=== PATIENT | male | born 1995 | race Caucasian/White ===

== ENCOUNTER 2023-02-20 22:25 | Emergency (ER) | payer MEDICARE, MEDICAID, SELFPAY ==
[2023-02-20 22:26] VITALS: BP 136/83; PULSE 92; RESP 20; TEMP 36.5; O2SAT 98; BMI 19.5
--- NOTE | 2023-02-20 22:44 | HMH.EDGENADL ---
Discharge Plan Disposition Patient Disposition: Home, Self-Care Prescriptions Prescriptions: New prednisone 50 mg tablet 50 mg PO DAILY 3 Days Qty: 3 0RF epinephrine 0.3 mg/0.3 mL auto-injector 0.3 mg IM Q10M PRN (Reason: anaphylaxis) Qty: 2 0RF Rx Instructions: for 2 doses Referrals Follow up/Referrals: Tomasz Paez [Primary Care Provider] - See instructions Activity Restrictions/Add. Instructions Additional Instructions/Restrictions: At this time it was felt you are safe to be discharged home. If new or worsening symptoms please do not hesitate to return the emergency department. Please take your medications as prescribed. Please pay attention to if your symptoms happen after ingestion of red meat. Clinical Impressions Clinical Impression: Allergic reaction Discharge ED Provider: Edi Vazquez General Adult HPI General Chief complaint: Allergic Reaction Stated complaint: trouble breathing, hives Time Seen by Provider: 02/20/23 22:35 Mode of Arrival: Ambulatory Source of Information: Patient Limitations: No Limitations Description of Symptoms (Recalled from ER Triage Doc. by RN): Patient having an allergic rx to unknown substance, having hives and facial swelling. History of Present Illness HPI narrative: Patient is a 28-year-old male who has past medical history of recurrent allergic reactions of unknown etiology presents emergency department for evaluation for concern for an allergic reaction. Onset was acute, just prior to arrival, patient had red blotchy patches over his back and swelling of his face and periorbital areas, no significant difficulty breathing. No other acute complaints at this time. Patient denies new close, new detergents, new occupational exposures, no other acute complaints at this time. Related Data Previous Rx's Medication Instructions Recorded epinephrine 0.3 mg/0.3 mL 0.3 mg (0.3 mL) IM Q10M PRN 02/20/23 injection, auto-injector anaphylaxis #2 ea prednisone 50 mg tablet 50 mg PO DAILY 3 days #3 tabs 02/20/23 Allergies Allergy/AdvReac Type Severity Reaction Status Date / Time Penicillins Allergy Intermediate Verified 02/20/23 22:40 morphine AdvReac Mild Verified 02/20/23 22:41 [facility] Disclaimer: The information contained in this section may have been updated after the patient was seen, as this information can be updated by other users. Social History Smoking Status: Current every day smoker alcohol intake: never current occupational status: other Travel in the last 8 weeks: None ROS Obtained: Yes Systems reviewed as appropriate & no additional complaints except as documented Physical Exam General General appearance: alert and in no apparent distress Head Head exam: atraumatic, normocephalic and other (Periorbital and cheek erythema and mild edema.) Eye Eye exam: Present PERRL and EOMI ENT ENT exam: Present mucous membranes moist Neck Neck exam: Present normal inspection Chest Chest inspection: Present normal inspection and symmetric chest wall rise Respiratory Respiratory exam: Present normal lung sounds bilaterally; Absent respiratory distress or wheezes Cardiovascular Cardiovascular exam: Present regular rate and normal rhythm Abdominal Exam Abdominal exam: Present soft; Absent tenderness Extremities Exam Extremities exam: Present normal inspection Neurological Exam Neurological exam: Present alert Psychiatric Psychiatric exam: Present normal affect Skin Skin exam: Present warm, dry and other (Scattered acne over patient's posterior back, no hives) Medical Decision Making Tristin Inquiry Pt receiving controlled substance: No Vital Signs: 02/20/23 22:26 02/20/23 22:45 Temperature 97.7 F Temperature Source Oral Pulse Rate 92 H Pulse Rate [Brachial] 92 H Respiratory Rate 20 22 Blood Pressure 136/83 Blood Pressure [Left Arm] 136/83 Blood Pressure Mean [Left Arm] 100 Blood Pressure Source [Left Arm] Automatic Cuff Blood Pressure Position [Left Arm] Sitting 02 Sat by Pulse Oximetry 98 97 Oxygen Delivery Method Room Air Room Air Orders (Tests/Meds): ED MEDICATIONS Discontinued Medications Generic Name Dose Route Start Last Admin Trade Name Freq PRN Reason Stop Dose Admin Diphenhydramine HCl 50 mg 02/20/23 22:46 02/20/23 23:02 Diphenhydramine 50mg Capsule PO 02/20/23 22:47 50 mg ONCE ONE Administration Prednisone 40 mg 02/20/23 22:46 02/20/23 23:02 Prednisone 20mg Tab PO 02/20/23 22:47 40 mg ONCE ONE Administration Medical Decision Narrative: In summary patient is a 28-year-old male with past medical history described above who presents emergency department for evaluation of facial swelling in the setting of previous recurrent allergic reactions. Patient is hemodynamically stable nontoxic-appearing upon arrival, afebrile. Patient has mild periorbital and bilateral cheek swelling, no airway involvement, no overt hives on skin exam, no gastrointestinal involvement. Given this history and symptoms are consistent with allergic reaction. Patient does not meet criteria for anaphylaxis. Patient will be given Benadryl and prednisone and will undergo period of observation. Upon repeat evaluation patient had resolving facial swelling, no airway symptoms. Given this patient is appropriate for discharge at this time will be discharged with a course of prednisone and EpiPen and was given return precautions. Critical Care Critical Care Time Critical Care Time: No
[2023-02-20 22:45] VITALS: BP 136/83; PULSE 92; RESP 22; O2SAT 97
[2023-02-20] MEDS: predniSONE 20MG TAB 40 MG PO (23:02)
[2023-02-20] MEDS: diphenhydrAMINE 50MG CAPSULE 50 MG PO (23:02)
[2023-02-20 23:41] VITALS: BP 114/68; PULSE 87; RESP 19; TEMP 36.7
== END 2023-02-21 00:09 | disposition home or self-care (01) ==
PROVIDERS: Emergency Provider Emergency Medicine; PCP Pediatrics
DX: T78.40XA Allergy, unspecified, initial encounter (principal); R22.0 Localized swelling, mass and lump, head; L50.9 Urticaria, unspecified; F17.200 Nicotine dependence, unspecified, uncomplicated
CPT/HCPCS: 99283

== ENCOUNTER 2023-05-07 23:13 | Emergency (ER) | payer MEDICARE, MEDICAID, SELFPAY ==
[2023-05-07 23:18] VITALS: BP 132/94; PULSE 110; RESP 20; TEMP 36.8; O2SAT 98; BMI 19.5
[2023-05-07] MEDS: diphenhydrAMINE 25MG CAPSULE 25 MG PO (23:48)
[2023-05-07 23:49] VITALS: PULSE 90; RESP 18; O2SAT 97
--- NOTE | 2023-05-07 23:52 | ED_ITS ---
Discharge Plan Disposition Patient Disposition: Home, Self-Care Condition: Good Prescriptions Prescriptions: New epinephrine 0.3 mg/0.3 mL auto-injector 0.3 mg IM Q15M PRN (Reason: anaphylaxis) Qty: 2 0RF Rx Instructions: for 2 doses All Day Allergy (cetirizine) 10 mg capsule 10 mg PO DAILY Qty: 30 0RF No Action prednisone 50 mg tablet 50 mg PO DAILY 3 Days Qty: 3 0RF epinephrine 0.3 mg/0.3 mL auto-injector 0.3 mg IM Q10M PRN (Reason: anaphylaxis) Qty: 2 0RF Rx Instructions: for 2 doses Referrals Follow up/Referrals: Tomasz Paez [Primary Care Provider] - See instructions Activity Restrictions/Add. Instructions Additional Instructions/Restrictions: You were evaluated in the ER. You are appropriate for discharge at this time. I have prescribed a daily antihistamine for you to take. This is cetirizine, take this as directed to suppress any potential allergic reaction. I have also prescribed EpiPen for you again, as discussed do not take this unless you are having signs and symptoms of a life-threatening allergic reaction. If you use the EpiPen, you must immediately go to an ER. Make a new appointment with an instrumentation and control technician (Dr. Paez) for reevaluation. Monitor your diet, soaps, detergents, lotions, etc. to see if any of these seem to cause you to have reaction. Make an appointment with your primary care physician for reevaluation in 2 to 3 days, return to the ER with any new, worsening, or otherwise concerning symptoms Clinical Impressions Clinical Impression: Rash, Allergic reaction Instructions Patient Instructions: DI for Skin Abscess Discharge ED Provider: Chiqui Figueroa Adult HPI General Chief complaint: Skin/Abscess/Foreign Body Stated complaint: allergic reaction with rash/bumps on skin Time Seen by Provider: 05/07/23 23:23 Mode of Arrival: Ambulatory Source of Information: Patient Limitations: No Limitations Description of Symptoms (Recalled from ER Triage Doc. by RN): Patient reports to ED with c/o of his face burning, and rash on his back, neck and face. History of Present Illness HPI narrative: 28-year-old male with a reported history of allergic reactions going on for the last 3 years presents to the ER with concerns of the right side of his face burning, rash on his neck, back. Patient reports the last time he presented with symptoms like this he was prescribed an EpiPen because he had trouble breathing. He states his symptoms are actually getting better despite him not having taken anything. He does not know what caused this reaction. He reports he went to an instrumentation and control technician and they could not find out what was causing his reactions. He denies any recent changes in soaps, detergents, foods, or other n ew exposures. He denies taking any medications for his symptoms but states they have improved since leaving the house. He denies any lip swelling, throat swelling, difficulty swallowing, vomiting, or trouble breathing at this time. He does admit to drinking alcohol tonight. He also reports smoking and chewing tobacco, no other illicit substances. Related Data Previous Rx's Medication Instructions Recorded epinephrine 0.3 mg/0.3 mL 0.3 mg (0.3 mL) IM Q10M PRN 02/20/23 injection, auto-injector anaphylaxis #2 ea prednisone 50 mg tablet 50 mg PO DAILY 3 days #3 tabs 02/20/23 cetirizine 10 mg capsule (All Day 10 mg PO DAILY #30 caps 05/07/23 Allergy (cetirizine)) epinephrine 0.3 mg/0.3 mL 0.3 mg (0.3 mL) IM Q15M PRN 05/07/23 injection, auto-injector anaphylaxis #2 ea Allergies Allergy/AdvReac Type Severity Reaction Status Date / Time Penicillins Allergy Intermediate Verified 02/20/23 22:40 morphine AdvReac Mild Verified 02/20/23 22:41 [facility] Disclaimer: The information contained in this section may have been updated after the patient was seen, as this information can be updated by other users. Social History (Updated 02/20/23 @ 23:39 by Edi Vazquez MD) Smoking Status: Current every day smoker alcohol intake: never current occupational status: other Travel in the last 8 weeks: None ROS Obtained: Yes All systems reviewed & no additional complaints except as documented Constitutional Constitutional: Denies chills, Denies fever(s), Denies headache(s) and Denies weakness Eyes Eyes: Denies change in vision ENT Ears, Nose, Mouth, and Throat: Denies dizziness, Denies headache(s), Denies nasal congestion and Denies sore throat Cardiovascular Cardiovascular: Denies chest pain, Denies dyspnea and Denies leg edema Respiratory Respiratory: Denies cough and Denies dyspnea Gastrointestinal Gastrointestingal: Denies constipation, diarrhea, nausea or vomiting Genitourinary Male Genitourinary: Denies difficulty urinating Musculoskeletal Musculoskeletal: Denies arthralgias, Denies myalgias, Denies numbness and Denies tingling Integumentary/Breasts Skin/Breast: Denies change in pigmentation and Reports rash (Neck, right face, back, but patient states it is significantly improved) Neurologic Neurologic: Denies dizziness, Denies headache(s), Denies numbness, Denies tingling and Denies weakness Physical Exam General General appearance: alert and in no apparent distress Head Head exam: atraumatic and normocephalic Eye Eye exam: Present PERRL and EOMI ENT ENT exam: Present mucous membranes moist and other (Trace redness over the right cheek without urticaria, swelling, or other lesions appreciated. No mucosal swelling, no angioedema) Neck Neck exam: Present normal inspection, full ROM and other (No rash, swelling, or adenopathy present, no urticaria); Absent lymphadenopathy or thyromegaly Chest Chest inspection: Present symmetric chest wall rise Respiratory Respiratory exam: Present normal lung sounds bilaterally; Absent respiratory distress, wheezes or stridor Cardiovascular Cardiovascular exam: Present regular rate and normal rhythm Abdominal Exam Abdominal exam: Present soft; Absent distention or tenderness Extremities Exam Extremities exam: Present full ROM Back Exam Back exam: Present other (Acne lesions present diffusely over the back, no urticaria, redness, excoriations, or other lesions) Neurological Exam Neurological exam: Present alert, oriented X3, CN II-XII intact and normal gait; Absent motor sensory deficit Psychiatric Psychiatric exam: Present normal affect and normal mood Skin Skin exam: Present warm, dry and rash (See documentation on neck, face, and back) Medical Decision Making Tristin Inquiry Pt receiving controlled substance: No Vital Signs: 05/07/23 23:18 05/07/23 23:49 Temperature 98.2 F Temperature Source Oral Pulse Rate 90 Pulse Rate [Right Radial] 110 H Respiratory Rate 20 18 Blood Pressure [Right Arm] 132/94 H Blood Pressure Mean [Right Arm] 106 Blood Pressure Source [Right Arm] Automatic Cuff Blood Pressure Position [Right Arm] Sitting 02 Sat by Pulse Oximetry 98 97 Oxygen Delivery Method Room Air Room Air Orders (Tests/Meds): ED MEDICATIONS Discontinued Medications Generic Name Dose Route Start Last Admin Trade Name Ya PRN Reason Stop Dose Admin Diphenhydramine HCl 25 mg 05/07/23 23:46 05/07/23 23:48 Diphenhydramine 25mg Capsule PO 05/07/23 23:47 25 mg ONCE ONE Administration Medical Decision Narrative: In summary, this 28year old male presents to the emergency department today with concerns of rash. On initial evaluation patient is hemodynamically stable, afebrile, no mucosal swelling, no stridor, no wheezes, no vomiting, very mild rash over the right cheek without any urticaria or other lesions appreciated. No rash present on the neck at this time though it was described at home. Acne present on the back, no rash present at this time. GCS 15, no focal neurologic deficits, no other abnormalities on exam. Differential diagnosis includes but is not limited to contact dermatitis, allergic dermatitis, considered systemic allergic reaction however patient has no findings of anaphylaxis or angioedema. I did review prior ED records which demonstrate patient had received EpiPen due to concerns of facial swelling when he most recently presented for similar complaints. He states he was unable to picker machine operator the EpiPen at that time and is asking for it to be prescribed again. Based on these concerns, I ordered Benadryl administration, no labs or imaging are necessary at this time. After Benadryl administration patient remained stable. His rash continues to improve, he has not developed any other symptoms, he is appropriate for discharge at this time. I prescribed Zyrtec for daily histamine management given he does not know the stimulant for his allergy, I recommended that he go back to his instrumentation and control technician for reevaluation, and I represcribed an EpiPen in case he were to develop a life-threatening reaction. Patient was given instructions on symptomatic management, follow up instructions, and return precautions for the emergency department. Patient indicated understanding and was discharged in stable condition. Critical Care Critical Care Time Critical Care Time: No
[2023-05-08 00:08] VITALS: BP 142/83; PULSE 90; RESP 18; TEMP 36.8; O2SAT 99
== END 2023-05-08 00:12 | disposition home or self-care (01) ==
LOC: ER 23:50
PROVIDERS: Emergency Provider Emergency Medicine; PCP Pediatrics
DX: R21 Rash and other nonspecific skin eruption (principal); T78.40XA Allergy, unspecified, initial encounter; F17.200 Nicotine dependence, unspecified, uncomplicated
CPT/HCPCS: 99283

== ENCOUNTER 2023-12-07 11:52 | Emergency (ER) | payer MEDICARE, MEDICAID, SELFPAY ==
[2023-12-07 11:53] VITALS: BP 135/87; PULSE 81; RESP 20; TEMP 36.9; O2SAT 100; BMI 28.7
[2023-12-07 12:24] LABS: Basophils # 0.1 K/mm3 (0-0.2); Basophils % 1.3 % (0.1-2.0); Eosinophils # 0.2 K/mm3 (0.0-0.4); Eosinophils % 2.3 % (0.1-12.0); Hematocrit 46.5 % (42.0-52.0); Hemoglobin 15.6 g/dL (14.1-18.0); Lymphocytes # 2.2 K/mm3 (0.7-4.5); Lymphocytes % 34.4 % (10-50); Mean Corpuscular HGB Conc 33.5 g/dL (31.8-35.4); Mean Corpuscular Hemoglobin 33.6 pg (27.0-31.2); Mean Corpuscular Volume 100.4 fl (80-94); Mean Platelet Volume 9.5 fl (7.4-10.4); Monocytes # 0.5 K/mm3 (0.1-1.0); Monocytes % 7.9 % (1.7-9.3); Neutrophils # 3.5 K/mm3 (1.8-7.8); Neutrophils % 54.1 % (37.0-80.0); Platelet Count 218 K/mm3 (142-424); Red Blood Count 4.63 M/mm3 (4.60-6.20); Red Cell Distribution Width 12.9 % (11.5-17.5); White Blood Count 6.4 K/mm3 (4.8-10.8)
[2023-12-07 12:25] LABS: Microscopic, Urine URINE MICROSCOPIC (MICROSCOPIC)
[2023-12-07 12:29] LABS: Appearance,Urine CLEAR (Clear); Bilirubin,Urine Negative (Negative); Blood, Urine Negative (Negative); Color,Urine YELLOW (Yellow); Glucose,Urine (UA) Negative (Negative); Ketones,Urine Negative (Negative); Leukocyte Esterase,Urine Negative (Negative); Nitrate,Urine Negative (Negative); Protein,Urine TRACE (Negative); Specific Gravity, Urine 1.025 (1.005-1.030); Urobilinogen,Urine 0.2 EU/dl (0.2)
[2023-12-07 12:33] LABS: Albumin Level 4.9 g/dl (3.5-5.0); Chloride 104 mmol/L (98-107); Potassium 4.1 mmoL/L (3.5-5.1); Sodium 137 mmol/L (136-145)
[2023-12-07 12:35] LABS: Lactic Acid 1.2 mmol/L (0.7-2.1)
[2023-12-07 12:36] LABS: Alanine Aminotransferase 21 U/L (12-78); Albumin/Globulin Ratio 1.6 (1.1-1.8); Alkaline Phosphatase 59 U/L (38-126); Anion Gap 12.1 mEq/L (5-15); Aspartate Amino Transferase 30 U/L (17-59); Bilirubin,Total 2.2 mg/dl (0.2-1.3); Blood Urea Nitrogen 7 mg/dl (9-20); Calcium 9.6 mg/dl (8.4-10.2); Carbon Dioxide 25 mmol/L (22.0-30.0); Creatinine Clearance Estimated 180 mL/min (50-200); Estimated Glomerular Filt Rate 117 ml/min (>60); GFR (African American) 141 ML/MIN (>60); Glucose 99 mg/dl (74-100); Lipase 86 U/L (23-300); Total Protein,Serum 7.9 g/dl (6.3-8.2)
--- NOTE | 2023-12-07 12:37 | CT_ITS ---
FINAL REPORT TECHNIQUE: Oral and IV contrast enhanced exam This study was performed with techniques to keep radiation doses as low as reasonably achievable, (ALARA). Individualized dose reduction techniques using automated exposure control or adjustment of mA and/or kV according to the patient''s size were employed. CLINICAL HISTORY: lower abd pain FINDINGS: Abdomen: No acute density is seen within the lung bases. The gallbladder is unremarkable. Solid abdominal organs are unremarkable. No bowel obstruction is present. There is no free air. No fluid collection is seen. There is no adenopathy. Pelvis: The appendix is normal. The bladder wall is thickened raising question of cystitis. No bowel wall thickening is present. There is no free fluid. No pelvic mass is seen. IMPRESSION: Bladder wall thickening raising question of cystitis. Reviewed, Interpreted and Dictated by Zeeshan Harris MD Transcribed by Richa Mckenzie Authenticated and [facility]
[2023-12-07 12:50] LABS: Sperm,Urine OCC /lpf
[2023-12-07] MEDS: ACETAMINOPHEN 500MG TAB 1000 MG PO (12:53)
[2023-12-07] MEDS: SODIUM CHLORIDE 0.9% 10ML SYR (RAD ONLY) 10 ML IV (12:53)
[2023-12-07] MEDS: KETOROLAC 30MG/ML VIAL 15 MG IV (12:53)
[2023-12-07] MEDS: IOPAMIDOL-370 (76%);100ML BOTTLE 75 ML IV (12:53)
[2023-12-07] MEDS: LACTATED RINGERS 1000ML 1,000 ML 999 ML IV (12:53)
[2023-12-07 13:00] VITALS: BP 115/81; PULSE 77; O2SAT 99
[2023-12-07 13:30] VITALS: BP 95/54; PULSE 67; O2SAT 100
[2023-12-07 13:32] LABS: HIV (1&2) Antibody Rapid NONREACTIVE (NONREACTIVE)
[2023-12-07 14:00] VITALS: BP 125/85; PULSE 78; O2SAT 99
[2023-12-07] MEDS: DOXYCYCLINE HYCL 100 MG TABLET PO (14:28)
[2023-12-07] MEDS: CEFTRIAXONE SODIUM 2 GM in 0.9 % SODIUM CHLORIDE 100 ML IV (14:28)
[2023-12-07 14:43] VITALS: BP 125/85; PULSE 78; RESP 16; TEMP 36.7; O2SAT 98
--- NOTE | 2023-12-07 15:07 | HMH.EDGENADL ---
Discharge Plan Disposition Patient Disposition: Home, Self-Care Condition: Good Prescriptions Prescriptions: New naproxen 500 mg tablet 500 mg PO BID Qty: 20 0RF doxycycline hyclate 100 mg tablet 100 mg PO BID 10 Days Qty: 20 0RF No Action epinephrine 0.3 mg/0.3 mL auto-injector 0.3 mg IM Q15M PRN (Reason: anaphylaxis) Qty: 2 0RF Rx Instructions: for 2 doses All Day Allergy (cetirizine) 10 mg capsule 10 mg PO DAILY Qty: 30 0RF prednisone 50 mg tablet 50 mg PO DAILY 3 Days Qty: 3 0RF epinephrine 0.3 mg/0.3 mL auto-injector 0.3 mg IM Q10M PRN (Reason: anaphylaxis) Qty: 2 0RF Rx Instructions: for 2 doses Referrals Follow up/Referrals: Tomasz Paez [Primary Care Provider] - See instructions Audi Jiménez MD [Staff Physician] - See instructions Activity Restrictions/Add. Instructions Additional Instructions/Restrictions: You were evaluated in the emergency department today. Your urine is clear, however your bladder is extremely inflamed on CT scan which is concerning for infection. Please peanut picker your prescriptions at the pharmacy and take the full course as prescribed. Follow-up closely with urology as well as with your primary care provider. We have provided you with information for Dr. Jiménez. Return to the emergency department for new or worsening symptoms. you may also take Tylenol every 4-6 hours at home as needed for pain Clinical Impressions Clinical Impression: Acute pelvic pain, Bladder wall thickening Stand Alone Forms Stand Alone Forms: Work/School Release Instructions Patient Instructions: DI for Urinary Tract Infection (UTI), DI for Acute Abdominal Pain Print Language Print Language: Bahraini Discharge ED Provider: Karina Ruiz General Adult HPI General Chief complaint: Abdominal Pain Stated complaint: pain in abd Time Seen by Provider: 12/07/23 12:30 Mode of Arrival: Family Vehicle Source of Information: Patient Limitations: No Limitations Description of Symptoms (Recalled from ER Triage Doc. by RN): Pt c/o lower ABD pain for 4 days. ABD is tender but soft. He also reports a cough when laying down. History of Present Illness HPI narrative: This patient is a 28-year-old male who denies significant past medical history presenting to the emergency department for evaluation with concern for pelvic pain. He reports it has been going on for about 4 days now. No fevers, chills, nausea, vomiting, changes bowel movements, changes in urination, or other concerns. No testicular or penile issues Related Data Previous Rx's ?Medication ?Instructions ?Recorded epinephrine 0.3 mg/0.3 mL 0.3 mg (0.3 mL) IM Q10M PRN 02/20/23 injection, auto-injector anaphylaxis #2 ea prednisone 50 mg tablet 50 mg PO DAILY 3 days #3 tabs 02/20/23 cetirizine 10 mg capsule (All Day 10 mg PO DAILY #30 caps 05/07/23 Allergy (cetirizine)) epinephrine 0.3 mg/0.3 mL 0.3 mg (0.3 mL) IM Q15M PRN 05/07/23 injection, auto-injector anaphylaxis #2 ea doxycycline hyclate 100 mg tablet 100 mg PO BID 10 days #20 tabs 12/07/23 naproxen 500 mg tablet 500 mg PO BID #20 tabs 12/07/23 Allergies Allergy/AdvReac Type Severity Reaction Status Date / Time Penicillins Allergy Intermediate Verified 02/20/23 22:40 morphine AdvReac Mild Verified 02/20/23 22:41 PFSH [facility] Disclaimer: The information contained in this section may have been updated after the patient was seen, as this information can be updated by other users. Social History Smoking Status: Current every day smoker alcohol intake: never current occupational status: other Travel in the last 8 weeks: None ROS Obtained: Yes All systems reviewed & no additional complaints except as documented Physical Exam General General appearance: alert and in no apparent distress Head Head exam: atraumatic and normocephalic Eye Eye exam: Present normal appearance, PERRL and EOMI ENT ENT exam: Present normal exam, normal oropharynx, mucous membranes moist and normal external ear exam Neck Neck exam: Present normal inspection, full ROM and trachea midline; Absent tenderness Chest Chest inspection: Present normal inspection and symmetric chest wall rise; Absent tenderness Respiratory Respiratory exam: Present normal lung sounds bilaterally; Absent respiratory distress, wheezes, stridor or accessory muscle use Cardiovascular Cardiovascular exam: Present regular rate and normal rhythm Abdominal Exam Abdominal exam: Present soft and tenderness (Suprapubic); Absent distention, guarding, rebound or rigidity Extremities Exam Extremities exam: Present normal inspection, full ROM and normal capillary refill; Absent tenderness or edema Back Exam Back exam: Present normal inspection and full ROM; Absent tenderness Neurological Exam Neurological exam: Present alert, oriented X3, CN II-XII intact and normal gait; Absent motor sensory deficit Psychiatric Psychiatric exam: Present normal affect and normal mood Skin Skin exam: Present warm and dry Medical Decision Making Medical Records Medical records reviewed: Yes I reviewed the patient's medical records. Screening: Per USPSTF and CDC recommendations, given the prevalence of disease in our region, it is our hospital?s policy to screen for HIV and viral Hepatitis for all patients aged 18 and over and those with ongoing risk factors. [place] Inquiry Pt receiving controlled substance: No Vital Signs: 12/07/23 11:53 12/07/23 13:00 12/07/23 13:30 Temperature 98.5 F Temperature Source Oral Pulse Rate 77 67 Pulse Rate [Right] 81 Respiratory Rate 20 Blood Pressure 115/81 95/54 L Blood Pressure [Right Arm] 135/87 Blood Pressure Mean 90 67 Blood Pressure Mean [Right Arm] 103 Blood Pressure Source [Right Arm] Automatic Cuff 02 Sat by Pulse Oximetry 100 99 100 Oxygen Delivery Method Room Air Room Air Room Air 12/07/23 14:00 12/07/23 14:43 Temperature 98.0 F Temperature Source Pulse Rate 78 78 Pulse Rate [Right] Respiratory Rate 16 Blood Pressure 125/85 125/85 Blood Pressure [Right Arm] Blood Pressure Mean 98 Blood Pressure Mean [Right Arm] Blood Pressure Source [Right Arm] 02 Sat by Pulse Oximetry 99 Oxygen Delivery Method Room Air Room Air Lab Data Lab results reviewed: Yes I reviewed the patient's lab results. Lab Results 12/07/23 12:09: WBC 6.4, RBC 4.63, Hgb 15.6, Hct 46.5, MCV 100.4 H, MCH 33.6 H, MCHC 33.5, RDW 12.9, Plt Count 218, MPV 9.5, Neut % (Auto) 54.1, Lymph % (Auto) 34.4, [place] % (Auto) 7.9, Eos % (Auto) 2.3, Baso % (Auto) 1.3, Neut # (Auto) 3.5, Lymph # (Auto) 2.2, [place] # (Auto) 0.5, Eos # (Auto) 0.2, Baso # (Auto) 0.1, Sodium 137, Potassium 4.1, Chloride 104, Carbon Dioxide 25, Anion Gap 12.1, BUN 7 L, Creatinine 0.80, Estimated Creat Clear 180, Estimated GFR 117, Est GFR ( Amer) 141, Glucose 99, Lactate 1.2, Calcium 9.6, Total Bilirubin 2.2 H, AST 30, ALT 21, Alkaline Phosphatase 59, Total Protein 7.9, Albumin 4.9, Globulin 3.0, Albumin/Globulin Ratio 1.6, Lipase 86, Urine Color Yellow, Urine Appearance Clear, Urine pH 6.0, Ur Specific [place] 1.025, Urine Protein Trace, Urine Glucose (UA) Negative, Urine Ketones Negative, Urine Blood Negative, Urine Nitrate Negative, Urine Bilirubin Negative, Urine Urobilinogen 0.2, Ur Leukocyte Esterase Negative, Urine RBC None, Urine WBC None, Ur Squamous Epith Cells None, Urine Bacteria None, Urine Sperm Occ, HIV 1&2 Antibody Rapid Nonreactive 12/07/23 12:09 12/07/23 12:09 Orders (Tests/Meds): ED MEDICATIONS Discontinued Medications Generic Name Dose Route Start Last Admin Trade Name Mikaelq PRN Reason Stop Dose Admin Acetaminophen 1,000 mg 12/07/23 12:39 12/07/23 12:53 Acetaminophen 500mg Tab PO 12/07/23 12:40 1,000 mg ONCE ONE Administration Doxycycline Hyclate 100 mg 12/07/23 14:14 12/07/23 14:28 Doxycycline Hycl 100 Mg Tablet PO 12/07/23 14:15 100 mg ONCE ONE Administration Lactated Ringer's 1,000 mls @ 999 mls/hr 12/07/23 12:39 12/07/23 12:53 Lactated Ringer's 1000 Ml Bag IV 12/07/23 13:39 999 mls/hr .Q1H1M ONE Administration Ceftriaxone Sodium 2 gm/ 100 mls @ 200 mls/hr 12/07/23 14:14 12/07/23 14:28 Sodium Chloride IV 12/07/23 14:43 200 mls/hr ONCE ONE Administration Iopamidol 75 ml 12/07/23 12:52 12/07/23 12:53 Iopamidol-370 (76%);100ml Bottle IV 12/07/23 12:53 75 ml ONCE ONE Administration Ketorolac Tromethamine 15 mg 12/07/23 12:39 12/07/23 12:53 Ketorolac 30mg/Ml Vial IV 12/07/23 12:40 15 mg ONCE ONE Administration Sodium Chloride 10 ml 12/07/23 12:52 12/07/23 12:53 Sodium Chloride 0.9% 10ml Syr (Rad Only) IV 01/06/24 12:51 10 ml NEEDED PRN Administration Maintain IV Site ORDERS Category Date Time Status CT abdomen pelvis w con Stat Cat Scan 12/07/23 12:37 Completed Complete Blood Count Auto Diff Stat Lab 12/07/23 12:09 Completed Comprehensive Metabolic Panel Stat Lab 12/07/23 12:09 Completed HIV (1&2) Antibody Rapid Stat Lab 12/07/23 12:09 Completed Hep C Ab with Reflex to RNA Stat Lab 12/07/23 12:09 Received Lactic Acid Stat Lab 12/07/23 12:09 Completed Lipase Stat Lab 12/07/23 12:09 Completed UA [Urinalysis and Microscopic] Stat Lab 12/07/23 12:09 Completed Urine Culture Stat Micro 12/07/23 11:57 Received Medical Decision Narrative: In summary, this patient is a 28-year-old male presenting to the Emergency Department for evaluation of pelvic pain. Differential diagnoses considered include but are not limited to cystitis, ureterolithiasis, pyelonephritis, appendicitis, colitis, constipation. Ruling out the most morbid conditions drove assessment. On exam, the patient is very well-appearing with only suprapubic tenderness. No rebound or guarding. Vitals are reassuring on cardiac telemetry. Workup included CBC, CMP, urinalysis, and CT abdomen and pelvis with IV contrast. Patient was given a bolus of IV fluids as well as IV Toradol and acetaminophen for symptomatic improve. I independently interpreted CT scan prior to the radiologist read and noted bladder inflammation. Please see their read for final interpretation. Radiology noted possible cystitis. labs were obtained that demonstrated no acutely concerning abnormalities. No leukocytosis, kidney function normal, liver enzymes normal. Urine not concerning for infection, but given the degree of bladder inflammation on CT I did order urine culture as well as urine gonorrhea chlamydia.. On reassessment, patient had good improvement after administration of interventions above. Abdominal exam is benign. Ultimately, I feel it is appropriate for discharge home. I decided to go ahead and empirically treat for the bladder thickening and irritation. Given his age and sexual activity, will treat with Rocephin and doxycycline.. Advised patient to follow-up outpatient with urology as well as primary care. I also gave him strict return precautions and instructions for close follow-up. He was discharged after all questions were answered. Critical Care Critical Care Time Critical Care Time: No
[2023-12-08 09:13] LABS: HCV Ab Non Reactive (Non Reactive)
[2023-12-10 22:14] LABS: Neisseria gonorrhoeae, NAA Negative (Negative)
== END 2023-12-07 14:44 | disposition home or self-care (01) ==
PROVIDERS: Emergency Provider Emergency Medicine; PCP Pediatrics
DX: R10.2 Pelvic and perineal pain (principal); N32.89 Other specified disorders of bladder
CPT/HCPCS: 74177; 80053; 81001; 83605; 83690; 85025; 86803; 87086; 87389; 87491; 87591; 96361; 96365; 96375; 99284; J0696; J1885; J7120; Q9967

== ENCOUNTER 2024-02-24 18:51 | Emergency (ER) | payer MEDICARE, MEDICAID, SELFPAY ==
[2024-02-24 19:10] VITALS: BP 130/85; PULSE 73; RESP 20; TEMP 37.1; O2SAT 98; BMI 20.7
--- NOTE | 2024-02-24 19:10 | EXP.UTC ---
Discharge Plan Disposition Patient Disposition: Home, Self-Care Condition: Good Prescriptions Prescriptions: New clindamycin HCl 300 mg capsule 300 mg PO Q8H Qty: 30 0RF Referrals Follow up/Referrals: Tomasz Paez [Primary Care Provider] - See instructions Activity Restrictions/Add. Instructions Additional Instructions/Restrictions: Take tylenol or ibuprofen for pain or fever. Take the medications as directed. Follow up with your regular doctor. Follow up with your dentist. GO TO THE ER FOR ANY WORSENING SYMPTOMS Clinical Impressions Clinical Impression: Dental abscess Instructions Patient Instructions: DI for Tooth Abscess Print Language Print Language: Sami Discharge ED Provider: Guillermo Stewart [facility] [place] General Stated complaint: facial swelling Time Seen by Provider: 02/24/24 19:10 Related Data Previous Rx's ?Medication ?Instructions ?Recorded clindamycin HCl 300 mg capsule 300 mg PO Q8H #30 caps 02/24/24 Allergies Allergy/AdvReac Type Severity Reaction Status Date / Time Penicillins Allergy Intermediate Verified 02/20/23 22:40 morphine AdvReac Mild Verified 02/20/23 22:41 [facility] Disclaimer: The information contained in this section may have been updated after the patient was seen, as this information can be updated by other users. Social History Smoking Status: Current every day smoker alcohol intake: never current occupational status: other Travel in the last 8 weeks: None Have you lived/traveled outside [place] in past 30 days?: No Contact w/someone who lives/traveled outside [place] past 30 days?: No Exposure to someone with infectious disease in past 14 days?: No Do you have a fever (greater than 100.4 F or 38 C)?: No Have you tested positive for COVID-19: No Exposed to someone with COVID-19 in past 14 days?: No Do you have a sore throat?: No Do you have a cough?: No Do you have any weakness?: No Do you have any diarrhea?: No Are you experiencing any unusual bleeding?: No Do you have any muscle aches/pain?: No Do you have any abdominal pain?: No Are you experiencing loss of taste or smell?: No ROS Obtained: Yes All systems reviewed & no additional complaints except as documented Constitutional Constitutional: Denies chills and Denies fever(s) Eyes Eyes: Denies eye discharge ENT Ears, Nose, Mouth, and Throat: Denies dizziness, Denies otalgia and Denies sore throat Cardiovascular Cardiovascular: Denies chest pain Respiratory Respiratory: Denies shortness of breath, Denies chest congestion, Denies cough, Denies stridor and Denies wheezing Gastrointestinal Gastrointestingal: Denies nausea or vomiting Musculoskeletal Musculoskeletal: Reports system reviewed and no additional complaints, except as documented and Denies arthralgias Integumentary/Breasts Skin/Breast: Denies rash Neurologic Neurologic: Denies dizziness and Denies paresthesias Allergic/Immunologic Allergic/Immunologic: Denies wheezing Physical Exam General General appearance: alert and in no apparent distress Head Head exam: atraumatic, normocephalic and normal inspection Eye Eye exam: Present normal appearance, PERRL and EOMI ENT ENT exam: Present normal exam, normal oropharynx, mucous membranes moist, TM's normal bilaterally and normal external ear exam Neck Neck exam: Present normal inspection, full ROM and trachea midline; Absent meningismus or lymphadenopathy Chest Chest inspection: Present normal inspection and symmetric chest wall rise; Absent tenderness Respiratory Respiratory exam: Present normal lung sounds bilaterally; Absent respiratory distress Cardiovascular Cardiovascular exam: Present regular rate and normal rhythm; Absent JVD Abdominal Exam Abdominal exam: Present soft and normal bowel sounds; Absent distention, tenderness or guarding Extremities Exam Extremities exam: Present normal inspection, full ROM and normal capillary refill; Absent calf tenderness Back Exam Back exam: Present normal inspection; Absent tenderness Neurological Exam Neurological exam: Present alert and oriented X3 Psychiatric Psychiatric exam: Present normal affect and normal mood Skin Skin exam: Present warm, dry, intact and normal color Lymphatic Lymphatic Findings: no adenopathy Medical Decision Making Medical Records Medical records reviewed: No I reviewed the patient's medical records. Screening: Per USPSTF and CDC recommendations, given the prevalence of disease in our region, it is our hospital?s policy to screen for HIV and viral Hepatitis for all patients aged 18 and over and those with ongoing risk factors. Tr[place]in Inquiry Pt receiving controlled substance: No
[2024-02-24] MEDS: CLINDAMYCIN 150MG CAPSULE 300 MG PO (19:53)
[2024-02-24 20:05] VITALS: BP 130/85; PULSE 73; RESP 20; TEMP 37.1
== END 2024-02-24 20:08 | disposition home or self-care (01) ==
PROVIDERS: Emergency Provider Nurse Practitioner Family; PCP Pediatrics
DX: K04.7 Periapical abscess without sinus (principal)
CPT/HCPCS: 99212; G0381

== ENCOUNTER 2024-04-11 23:52 | Emergency (ER) | payer MEDICARE, MEDICAID, SELFPAY ==
[2024-04-11 23:52] VITALS: BP 126/94; PULSE 92; RESP 18; TEMP 36.8; O2SAT 100; BMI 21.5
--- NOTE | 2024-04-11 23:57 | CT_ITS ---
PROCEDURE INFORMATION: Exam: CT Head Without Contrast Exam date and time: 04/12/2024 12:14 AM Age: 29 years old Clinical indication: Injury or trauma; Fall; Other: Syncope, headache, AMS TECHNIQUE: Imaging protocol: Computed tomography of the head without contrast. Radiation optimization: All CT scans at this facility use at least one of these dose optimization techniques: automated exposure control; mA and/or kV adjustment per patient size (includes targeted exams where dose is matched to clinical indication); or iterative reconstruction. COMPARISON: No relevant prior studies available. FINDINGS: Brain: Normal. No hemorrhage. Unremarkable white matter. No mass effect. Cerebral ventricles: No ventriculomegaly. Paranasal sinuses: Visualized sinuses are unremarkable. No fluid levels. Mastoid air cells: Visualized mastoid air cells are well aerated. Orbital cavities: The orbital contents are symmetric and normal. Bones: Unremarkable. No acute fracture. Soft tissues: Unremarkable. IMPRESSION: No acute intracranial abnormality.
--- NOTE | 2024-04-11 23:58 | XR_ITS ---
PROCEDURE INFORMATION: Exam: XR Chest Exam date and time: 04/12/2024 12:23 AM Age: 29 years old Clinical indication: Injury or trauma; Other: Syncope, fall TECHNIQUE: Imaging protocol: Radiologic exam of the chest. Views: 1 view. COMPARISON: CT ANGIO NECK 04/12/2024 12:19 AM FINDINGS: Lungs: Unremarkable. No consolidation. Pleural spaces: Unremarkable. No pleural effusion. No pneumothorax. Heart/Mediastinum: Unremarkable. No cardiomegaly. Vasculature: Unremarkable. Bones/joints: Unremarkable. IMPRESSION: No acute findings.
--- NOTE | 2024-04-11 23:58 | CT_ITS ---
PROCEDURE INFORMATION: Exam: CT Cervical Spine Without Contrast Exam date and time: 04/12/2024 12:17 AM Age: 29 years old Clinical indication: Injury or trauma; Other: Syncope, fall; Additional info: Syncope, headache, AMS TECHNIQUE: Imaging protocol: Computed tomography of the cervical spine without contrast. Radiation optimization: All CT scans at this facility use at least one of these dose optimization techniques: automated exposure control; mA and/or kV adjustment per patient size (includes targeted exams where dose is matched to clinical indication); or iterative reconstruction. COMPARISON: CT CERVICAL SPINE WO CON 04/12/2024 12:17 AM FINDINGS: Bones: No acute fracture. Normal alignment. No significant disc bulge or herniation. No severe spinal canal stenosis. No significant neural foraminal narrowing. Lungs: Lung apices are normal. Soft tissues: Unremarkable. IMPRESSION: No acute cervical spine fracture.
--- NOTE | 2024-04-11 23:58 | CT_ITS ---
PROCEDURE INFORMATION: Exam: CTA Neck With Contrast Exam date and time: 04/12/2024 12:19 AM Age: 29 years old Clinical indication: Injury or trauma; Fall; Other: Syncope, headache, AMS TECHNIQUE: Imaging protocol: Computed tomographic angiography of the neck with contrast. Exam focused on the cervical segments of the vasculature. 3D rendering (Not supervised by radiologist): MIP and/or 3D reconstructed images were created by the technologist. Radiation optimization: All CT scans at this facility use at least one of these dose optimization techniques: automated exposure control; mA and/or kV adjustment per patient size (includes targeted exams where dose is matched to clinical indication); or iterative reconstruction. Contrast material: ISOVUE; Contrast volume: 80 ml; Contrast route: INTRAVENOUS (IV); COMPARISON: CT CERVICAL SPINE WO CON 04/12/2024 12:17 AM FINDINGS: Right common carotid artery: No stenosis. No dissection or occlusion. Right internal carotid artery: No stenosis of the extracranial segment. No dissection or occlusion. Right external carotid artery: No occlusion or stenosis of the origin. Left common carotid artery: No stenosis. No dissection or occlusion. Left internal carotid artery: No stenosis of the extracranial segment. No dissection or occlusion. Left external carotid artery: No occlusion or stenosis of the origin. Right vertebral artery: No stenosis. No dissection or occlusion. Left vertebral artery: No stenosis. No dissection or occlusion. Soft tissues: Normal. No significant soft tissue swelling. Bones/joints: No acute fracture. IMPRESSION: No stenosis or occlusion. REFERENCES: NASCET CRITERIA. The degree of stenosis in the cervical segment of the internal carotid artery is based on NASCET criteria. Normal is no stenosis. Mild is less than 50% stenosis. Moderate is 50-69% stenosis. Severe is 70% to 99% stenosis. Total occlusion is no detectable patent lumen.
--- NOTE | 2024-04-11 23:58 | CT_ITS ---
PROCEDURE INFORMATION: Exam: CTA Head With Contrast, Arteriography Exam date and time: 04/12/2024 12:19 AM Age: 29 years old Clinical indication: Injury or trauma; Fall; Other: Syncope, headache, AMS TECHNIQUE: Imaging protocol: Computed tomographic angiography of the head with contrast. Exam focused on the arteries. 3D rendering (Not supervised by radiologist): MIP and/or 3D reconstructed images were created by the technologist. Radiation optimization: All CT scans at this facility use at least one of these dose optimization techniques: automated exposure control; mA and/or kV adjustment per patient size (includes targeted exams where dose is matched to clinical indication); or iterative reconstruction. Contrast material: ISOVUE; Contrast volume: 80 ml; Contrast route: INTRAVENOUS (IV); COMPARISON: CT HEAD/BRAIN WO CON 04/12/2024 12:14 AM FINDINGS: ANTERIOR CIRCULATION: Right internal carotid artery: Intracranial segment is patent with no significant stenosis. No aneurysm. Right middle cerebral artery: No occlusion or significant stenosis. No aneurysm. Right anterior cerebral artery: No occlusion or significant stenosis. No aneurysm. Left internal carotid artery: Intracranial segment is patent with no significant stenosis. No aneurysm. Left middle cerebral artery: No occlusion or significant stenosis. No aneurysm. Left anterior cerebral artery: No occlusion or significant stenosis. No aneurysm. POSTERIOR CIRCULATION: Right vertebral artery: No occlusion or significant stenosis. No aneurysm. Left vertebral artery: No occlusion or significant stenosis. No aneurysm. Basilar artery: No occlusion or significant stenosis. No aneurysm. Right posterior cerebral artery: No occlusion or significant stenosis. No aneurysm. Left posterior cerebral artery: No occlusion or significant stenosis. No aneurysm. Brain: No definite mass, mass effect, or midline shift. Cerebral ventricles: No ventriculomegaly. Bones/joints: Unremarkable. No acute fracture. Soft tissues: Unremarkable. IMPRESSION: No large vessel stenosis or occlusion.
--- NOTE | 2024-04-12 00:03 | ECG_ITS ---
APPROVED REPORT Exam: Resting ECG HR:80 bpm ECG Measurements Heart Rate 80 AXES ND 159 P 70 QRSd 115 QRS 59 QT 371 T 46 QTc 407 Conclusion SINUS RHYTHM MODERATE INTRAVENTRICULAR CONDUCTION DELAY [110+ ms QRS DURATION] BORDERLINE ECG UNCONFIRMED REPORT Electronically signed by : VLADISLAV REESE, 04/12/2024 00:39:17
[2024-04-12] MEDS: LACTATED RINGERS 1000ML 1,000 ML 999 ML IV (00:04)
[2024-04-12] MEDS: SODIUM CHLORIDE 0.9% 10ML SYR (RAD ONLY) 10 ML IV (00:20)
--- NOTE | 2024-04-12 00:20 | ED_ITS ---
Discharge Plan Disposition Patient Disposition: Home, Self-Care Prescriptions Prescriptions: No Action clindamycin HCl 300 mg capsule 300 mg PO Q8H Qty: 30 0RF Referrals Follow up/Referrals: Provider,Referral, [Primary Care Provider] - See instructions Activity Restrictions/Add. Instructions Additional Instructions/Restrictions: Please follow-up with your primary care provider. Please return to the emergency department if you develop any new or worsening symptoms or become concerned for your health. Clinical Impressions Clinical Impression: Syncope, Headache Instructions Patient Instructions: DI for Altered Mental Status Print Language Print Language: [place] Discharge ED Provider: Trevor Santiago General Adult HPI General Chief complaint: Altered Mental Status Stated complaint: syncope Time Seen by Provider: 04/11/24 23:53 Mode of Arrival: EMS Source of Information: EMS Limitations: Altered Mental Status Description of Symptoms (Recalled from ER Triage Doc. by RN): Pt to ED via EMS. EMS reports pt was feeling wierd, called for his s/o, then lost conc and fell to the ground. Pt was breathing at the time. EMS reports pt responded only to sternal rub upon their arrival. Pt reports drinking 3 beers tonight. He normally drinks 6 beers a day. GCS 14. Pt reporting pain on the back of his head. EMS FSBS 115 History of Present Illness HPI narrative: 29-year-old male presents for syncope and fall. History obtained from EMS, patient, . reports that he said he was not feeling well and wanted to go to the hospital. She left the room briefly to attend their child and she saw him stand up and fall. He may have lost consciousness. He was responsive to painful stimuli and verbal stimuli per EMS. No seizure-like activity reported, no history of seizures. Patient reports that he has not been sick recently and was otherwise feeling okay. The is concerned he could have been having a panic attack because he was somewhat hyperventilating prior to the syncopal episode. Patient admits to daily alcohol usage, reports 5 beers today which is normal for him. Denies any drug use. Patient is complaining of occipital headache and seems to have fallen and struck his head. Related Data Previous Rx's ?Medication ?Instructions ?Recorded clindamycin HCl 300 mg capsule 300 mg PO Q8H #30 caps 02/24/24 Allergies Allergy/AdvReac Type Severity Reaction Status Date / Time Penicillins Allergy Intermediate Verified 02/20/23 22:40 morphine AdvReac Mild Verified 02/20/23 22:41 [facility] Disclaimer: The information contained in this section may have been updated after the patient was seen, as this information can be updated by other users. Social History Smoking Status: Current every day smoker alcohol intake: never current occupational status: other Travel in the last 8 weeks: None ROS Obtained: Yes All systems reviewed & no additional complaints except as documented Physical Exam General General appearance: alert and anxious Head Head exam: normocephalic and other (Small occipital hematoma) Eye Eye exam: Present normal appearance, PERRL and EOMI ENT ENT exam: Present normal oropharynx and normal external ear exam Neck Neck exam: Present normal inspection and full ROM; Absent tenderness Chest Chest inspection: Present normal inspection and symmetric chest wall rise; Absent tenderness Respiratory Respiratory exam: Present normal lung sounds bilaterally; Absent respiratory distress Cardiovascular Cardiovascular exam: Present regular rate and normal rhythm Abdominal Exam Abdominal exam: Present soft; Absent distention, tenderness or guarding Extremities Exam Extremities exam: Present normal inspection; Absent edema or joint swelling Back Exam Back exam: Present normal inspection; Absent tenderness Neurological Exam Neurological exam: Present alert and oriented X3; Absent motor sensory deficit Psychiatric Psychiatric exam: Present normal affect and normal mood Skin Skin exam: Present warm, dry and normal color Lymphatic Lymphatic Findings: no adenopathy Medical Decision Making Medical Records Medical records reviewed: Yes I reviewed the patient's medical records. Screening: Per USPSTF and CDC recommendations, given the prevalence of disease in our region, it is our hospital?s policy to screen for HIV and viral Hepatitis for all patients aged 18 and over and those with ongoing risk factors. Tristin Inquiry Pt receiving controlled substance: No Tristin was queried for this patient: No Vital Signs: 04/11/24 23:52 04/12/24 01:40 Temperature 98.2 F 97.9 F Temperature Source Oral Oral Pulse Rate 72 Pulse Rate [Left Radial] 92 H Respiratory Rate 18 16 Blood Pressure 102/56 L Blood Pressure [Right Arm] 126/94 H Blood Pressure Mean [Right Arm] 104 Blood Pressure Source Automatic Cuff Blood Pressure Source [Right Arm] Automatic Cuff Blood Pressure Position Supine Blood Pressure Position [Right Arm] Sitting 02 Sat by Pulse Oximetry 100 Oxygen Delivery Method Room Air Room Air Lab Data Lab results reviewed: Yes I reviewed the patient's lab results. Lab Results 04/11/24 00:56: Urine Opiates Screen Negative, Urine Methadone Screen Negative, Ur Barbituates Screen Negative, Ur Phencyclidine Scrn Negative, Ur Amphetamines Screen Negative, U Benzodiazepines Scrn Negative, Urine Cocaine Screen Negative, U Marijuana (THC) Screen Negative 04/12/24 00:00: WBC 13.6 H, RBC 4.53 L, Hgb 14.8, Hct 42.4, MCV 93.6, MCH 32.7 H , MCHC 34.9, RDW 11.3 L, Plt Count 233, MPV 11.5 H, Neut % (Auto) 65.3, Lymph % (Auto) 18.9, [place] % (Auto) 13.9 H, Eos % (Auto) 1.0, Baso % (Auto) 0.5, Neut # (Auto) 8.9 H, Lymph # (Auto) 2.6, [place] # (Auto) 1.9 H, Eos # (Auto) 0.1, Baso # (Auto) 0.1, Sodium 138, Potassium 3.5, Chloride 100, Carbon Dioxide 23, Anion Gap 18.5 H, BUN 7 L, Creatinine 0.70, Estimated Creat Clear 153, Estimated GFR 135, Est GFR ( Amer) 164, Glucose 100, Calcium 9.6, Total Bilirubin 0.7, AST 48, ALT 29, Alkaline Phosphatase 66, Total Protein 7.5, Albumin 5.3 H, Globulin 2.2, Albumin/Globulin Ratio 2.4 H, TSH 1.31, Thyroxine (T4) 7.3, P lasma/Serum Alcohol 163 H 04/12/24 00:56: Urine Color Yellow, Urine Appearance Clear, Urine pH 6.0, Ur Specific [place] <= 1.005, Urine Protein Negative, Urine Glucose (UA) Negative, Urine Ketones Negative, Urine Blood Negative, Urine Nitrate Negative, Urine Bilirubin Negative, Urine Urobilinogen 0.2, Ur Leukocyte Esterase Negative, Urine RBC None, Urine WBC None, Ur Squamous Epith Cells Occasional, Urine Bacteria None 04/12/24 00:00 04/12/24 00:00 Orders (Tests/Meds): ED MEDICATIONS Discontinued Medications Generic Name Dose Route Start Last Admin Trade Name Freq PRN Reason Stop Dose Admin Acetaminophen 1,000 mg 04/12/24 00:34 04/12/24 00:42 Acetaminophen 500mg Tab PO 04/12/24 00:35 1,000 mg ONCE ONE Administration Lactated Ringer's 1,000 mls @ 999 mls/hr 04/11/24 23:45 04/12/24 00:04 Lactated Ringer's 1000 Ml Bag IV 04/12/24 00:45 999 mls/hr .Q1H1M TERRENCE Administration Iopamidol 80 ml 04/12/24 00:19 04/12/24 00:21 Iopamidol-370 (76%);100ml Bottle IV 04/12/24 00:20 80 ml ONCE ONE Administration Ketorolac Tromethamine 30 mg 04/12/24 00:34 04/12/24 00:43 Ketorolac 30mg/Ml Vial IV 04/12/24 00:35 30 mg ONCE ONE Administration Prochlorperazine Edisylate 10 mg 04/12/24 00:34 04/12/24 00:43 Prochlorperazine 10mg/2ml Vial IV 04/12/24 00:35 10 mg ONCE ONE Administration Sodium Chloride 50 ml 04/12/24 00:19 04/12/24 00:21 0.9 % Sodium Chloride 50 Ml Vial IV 04/12/24 00:20 50 ml ONCE ONE Administration Sodium Chloride 10 ml 04/12/24 00:19 04/12/24 00:20 Sodium Chloride 0.9% 10ml Syr (Rad Only) IV 05/12/24 00:18 10 ml NEEDED PRN Administration Maintain IV Site ORDERS Category Date Time Status CT angio head Stat Cat Scan 04/11/24 23:[address] angio neck Stat Cat Scan 04/11/24 23:[address] cervical spine wo con Stat Cat Scan 04/11/24 23:[address] head/brain wo con Stat Cat Scan 04/11/24 23:57 Completed CXR --portable [XR chest portable] Stat Exams 04/11/24 23:58 Completed CBC w/Auto Diff [Complete Blood Count Auto Diff] Stat Lab 04/11/24 23:58 Completed CMP [Comprehensive Metabolic Panel] Stat Lab 04/11/24 23:58 Completed Ethanol [Ethyl Alcohol] Stat Lab 04/11/24 23:57 Completed T4 (Thyroxine) Stat Lab 04/11/24 23:58 Completed TSH [Thyroid Stimulating Hormone] Stat Lab 04/11/24 23:58 Completed UA [Urinalysis and Microscopic] Stat Lab 04/12/24 00:56 Completed UDS [Drug Screen,Urine] Stat Lab 04/11/24 00:56 Completed ECG Data Tracing #1: I reviewed this ECG and interpreted as documented below: ECG initial impression date: 04/12/24 ECG initial impression time: 00:03 ECG normal with no acute: arrhythmias, ischemia, conduction abnormalities, chamber hypertrophy Medical Decision Narrative: 29-year-old male without significant past medical history presents for syncope upon standing with resultant fall, struck his head. Consciousness has improved with EMS, currently GCS 15. History was obtained via interactive discussion with patient, family, EMS, chart review. On arrival, patient is [afebrile, hemodynamically stable, satting appropriately, alert, oriented x4, GCS 15], moving all extremities spontaneously. Full physical exam performed and significant for bruising to the back of the scalp, otherwise no acute traumatic injuries. Differential includes but is not limited to vasovagal syncope, orthostasis, arrhythmia, electrolyte derangement, intracranial pathology, intracranial trauma, cervical trauma. Patient was given Tylenol Toradol Compazine and fluids for headache for symptomatic management and correction of underlying abnormalities. Workup initiated including CT head, CTA head and neck, chest x-ray, broad-spectrum labs and EKG. On re-evaluation, patient [remains afebrile, HD stable.] Laboratory workup independently interpreted by me and significant for mildly elevated alcohol level, no significant electrolyte derangement, mild leukocytosis,. Imaging independently interpreted by me and significant for no evidence of acute intracranial trauma, aneurysm etc.. See radiology read for full review of final results. EKG independently interpreted by me and significant for normal sinus rhythm. On reassessment patient is sleeping comfortably and when aroused she reports his headache is significantly improved. Denies any other symptoms at this time. Given patient history, exam and workup, patient's presentation most likely represents syncopal episode and fall with resultant head trauma. The underlying etiology of the syncope not immediately. At this time, though his workup has been unremarkable. No evidence of seizure or reported seizure-like activity. Extensive discussion was had with patient and family guarding his presentation workup. He was discharged in stable condition with return precautions. Procedures Risk/Benefits of Procedure(s) Were Explained: Yes Critical Care Critical Care Time Critical Care Time: No
[2024-04-12] MEDS: 0.9 % SODIUM CHLORIDE 50 ML VIAL IV (00:21)
[2024-04-12] MEDS: IOPAMIDOL-370 (76%);100ML BOTTLE 80 ML IV (00:21)
[2024-04-12 00:32] LABS: Basophils # 0.1 K/mm3 (0-0.2); Basophils % 0.5 % (0.1-2.0); Eosinophils # 0.1 K/mm3 (0.0-0.4); Hematocrit 42.4 % (42.0-52.0); Hemoglobin 14.8 g/dL (14.1-18.0); Lymphocytes # 2.6 K/mm3 (0.7-4.5); Lymphocytes % 18.9 % (10-50); Mean Corpuscular HGB Conc 34.9 g/dL (31.8-35.4); Mean Corpuscular Hemoglobin 32.7 pg (27.0-31.2); Mean Corpuscular Volume 93.6 fl (80-94); Mean Platelet Volume 11.5 fl (7.4-10.4); Monocytes # 1.9 K/mm3 (0.1-1.0); Monocytes % 13.9 % (1.7-9.3); Neutrophils # 8.9 K/mm3 (1.8-7.8); Neutrophils % 65.3 % (37.0-80.0); Platelet Count 233 K/mm3 (142-424); Red Blood Count 4.53 M/mm3 (4.60-6.20); Red Cell Distribution Width 11.3 % (11.5-17.5); White Blood Count 13.6 K/mm3 (4.8-10.8)
[2024-04-12 00:37] LABS: Ethyl Alcohol 163 mg/dl (0-10)
[2024-04-12 00:38] LABS: Alanine Aminotransferase 29 U/L (12-78); Albumin Level 5.3 g/dl (3.5-5.0); Albumin/Globulin Ratio 2.4 (1.1-1.8); Alkaline Phosphatase 66 U/L (38-126); Anion Gap 18.5 mEq/L (5-15); Aspartate Amino Transferase 48 U/L (17-59); Bilirubin,Total 0.7 mg/dl (0.2-1.3); Blood Urea Nitrogen 7 mg/dl (9-20); Calcium 9.6 mg/dl (8.4-10.2); Carbon Dioxide 23 mmol/L (22.0-30.0); Chloride 100 mmol/L (98-107); Creatinine Clearance Estimated 153 mL/min (50-200); Estimated Glomerular Filt Rate 135 ml/min (>60); GFR (African American) 164 ML/MIN (>60); Globulin 2.2 g/dL (1.3-3.2); Glucose 100 mg/dl (74-100); Potassium 3.5 mmoL/L (3.5-5.1); Sodium 138 mmol/L (136-145); Total Protein,Serum 7.5 g/dl (6.3-8.2)
[2024-04-12] MEDS: ACETAMINOPHEN 500MG TAB 1000 MG PO (00:42)
[2024-04-12] MEDS: KETOROLAC 30MG/ML VIAL 30 MG IV (00:43)
[2024-04-12] MEDS: PROCHLORPERAZINE 10MG/2ML VIAL 10 MG IV (00:43)
[2024-04-12 00:55] LABS: T4 (Thyroxine) 7.3 ug/dl (5.53-11.0)
[2024-04-12 01:02] LABS: Microscopic, Urine URINE MICROSCOPIC (MICROSCOPIC)
[2024-04-12 01:03] LABS: Appearance,Urine CLEAR (Clear); Bilirubin,Urine Negative (Negative); Blood, Urine Negative (Negative); Color,Urine YELLOW (Yellow); Glucose,Urine (UA) Negative (Negative); Ketones,Urine Negative (Negative); Leukocyte Esterase,Urine Negative (Negative); Nitrate,Urine Negative (Negative); Protein,Urine Negative (Negative); Specific Gravity, Urine <= 1.005 (1.005-1.030); Urobilinogen,Urine 0.2 EU/dl (0.2)
[2024-04-12 01:09] LABS: Thyroid Stimulating Hormone 1.31 uIU/mL (0.465-4.68)
[2024-04-12 01:11] LABS: Squamous Epithelial Cell,Urine Occasional #/hpf (0-5)
[2024-04-12 01:18] LABS: Amphetamine/Metha Screen,Urine Negative ng/ml (<1000); Barbiturates Screen,Urine Negative ng/ml (<200); Benzodiazepines Screen,Urine Negative ng/ml (<200); Cannabinoid Screen,Urine Negative ng/ml (<50); Cocaine Screen,Urine Negative ng/ml (<300); Methadone Screen,Urine Negative ng/ml (<300); Opiate Screen,Urine Negative ng/ml (<300); Phencyclidine Screen,Urine Negative ng/ml (<25)
[2024-04-12 01:40] VITALS: BP 102/56; PULSE 72; RESP 16; TEMP 36.6; O2SAT 98
== END 2024-04-12 01:43 | disposition home or self-care (01) ==
PROVIDERS: Emergency Provider Emergency Medicine
DX: R55 Syncope and collapse (principal); R51.9 Headache, unspecified; W18.39XA Other fall on same level, initial encounter; Y93.89 Activity, other specified; Y92.009 Unspecified place in unspecified non-institutional (private) residence as the place of occurrence of the external cause
CPT/HCPCS: 70450; 70496; 70498; 71045; 72125; 80053; 80307; 80320; 81001; 84436; 84443; 85025; 93005; 96361; 96374; 96375; 99285; G0480; J0780; J1885; J7120; Q9967

== ENCOUNTER 2024-07-19 00:51 | Emergency (ER) | payer MEDICARE, SELFPAY ==
--- NOTE | 2024-07-19 00:55 | ED_ITS ---
Discharge Plan Disposition Patient Disposition: Home, Self-Care Prescriptions Prescriptions: No Action clindamycin HCl 300 mg capsule 300 mg PO Q8H Qty: 30 0RF Referrals Follow up/Referrals: Provider,Referral, MD [Primary Care Provider] - See instructions Activity Restrictions/Add. Instructions Additional Instructions/Restrictions: Please follow-up with your primary care provider. Please return to the emergency department if you develop any new or worsening symptoms or become concerned for your health. 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 He reports that he woke up with feeling like his lower lip was swelling, felt nauseous and vomited, and was itchy all over. He has had this happen multiple times and has never satisfactorily found a source. He saw an pet sitter and they did not figure it out either. He reports that he has had some vomiting of blood in the past as well and thinks he might of had some blood in it today but is not sure because he ate hamburger today. Patient reports some abdominal discomfort and chest discomfort as well. Related Data Previous Rx's ?Medication ?Instructions ?Recorded clindamycin HCl 300 mg capsule 300 mg PO Q8H #30 caps 02/24/24 Allergies Allergy/AdvReac Type Severity Reaction Status Date / Time Penicillins Allergy Intermediate Verified 02/20/23 22:40 morphine AdvReac Mild Verified 02/20/23 22:41 [facility] Disclaimer: The information contained in this section may have been updated after the patient was seen, as this information can be updated by other users. Social History Smoking Status: Current every day smoker alcohol intake: never current occupational status: other Travel in the last 8 weeks?: None ROS Obtained: Yes All systems reviewed & no additional complaints except as documented Physical Exam General General appearance: alert and in no apparent distress Head Head exam: atraumatic and normocephalic Eye Eye exam: Present normal appearance, PERRL and EOMI ENT ENT exam: Present normal oropharynx, normal external ear exam and other (Lower lip is swollen compared to baseline per patient/family, not markedly edematous on my evaluation) Neck Neck exam: Present normal inspection and full ROM Chest Chest inspection: Present normal inspection and symmetric chest wall rise; Absent tenderness Respiratory Respiratory exam: Present normal lung sounds bilaterally; Absent respiratory distress Cardiovascular Cardiovascular exam: Present regular rate and normal rhythm Abdominal Exam Abdominal exam: Present soft; Absent distention, tenderness or guarding Extremities Exam Extremities exam: Present normal inspection; Absent edema or joint swelling Back Exam Back exam: Present normal inspection; Absent tenderness Neurological Exam Neurological exam: Present alert and oriented X3; Absent motor sensory deficit Psychiatric Psychiatric exam: Present normal affect and normal mood Skin Skin exam: Present warm, dry and normal color Lymphatic Lymphatic Findings: no adenopathy Medical Decision Making Medical Records Medical records reviewed: Yes I reviewed the patient's medical records. Screening: Per USPSTF and CDC recommendations, given the prevalence of disease in our region, it is our hospital?s policy to screen for HIV and viral Hepatitis for all patients aged 18 and over and those with ongoing risk factors. Tristin Inquiry Pt receiving controlled substance: No Tristin was queried for this patient: No Vital Signs: 07/19/24 01:01 07/19/24 01:48 Temperature 98.3 F Temperature Source Oral Pulse Rate 85 Pulse Rate [Left] 103 H Respiratory Rate 20 Blood Pressure [Right Arm] 116/87 Blood Pressure Mean [Right Arm] 96 02 Sat by Pulse Oximetry 98 96 Lab Data Lab results reviewed: Yes I reviewed the patient's lab results. Lab Results 07/19/24 01:00: WBC 11.4 H, RBC 4.70, Hgb 15.3, Hct 43.0, MCV 91.5, MCH 32.6 H, MCHC 35.6 H, RDW 11.2 L, Plt Count 275, MPV 12.2 H, Neut % (Auto) 48.7, Lymph % (Auto) 40.2, [place] % (Auto) 9.1, Eos % (Auto) 1.3, Baso % (Auto) 0.4, Neut # (Auto) 5.5, Lymph # (Auto) 4.6 H, [place] # (Auto) 1.0, Eos # (Auto) 0.2, Baso # (Auto) 0.0, PT 10.7, INR 0.95, Sodium 139, Potassium 3.7, Chloride 106, Carbon Dioxide 25, Anion Gap 11.7, BUN 6 L, Creatinine 0.70, Estimated Creat Clear 152, Estimated GFR 135, Est GFR ( Amer) 164, Glucose 104 H, Calcium 9.6, Total Bilirubin 0.8, AST 44, ALT 48, Alkaline Phosphatase 58, Total Protein 7.5, Albumin 5.0, Globulin 2.5, Albumin/Globulin Ratio 2.0 H, Lipase 131 07/19/24 01:00 07/19/24 01:00 Orders (Tests/Meds): ED MEDICATIONS Generic Name Dose Route Start Last Admin Trade Name Freq PRN Reason Stop Dose Admin Sodium Chloride 8 ml 07/19/24 01:15 Sodium Chloride 0.9% 10ml Vial IV 08/18/24 01:14 NEEDED PRN dilute pepcid Discontinued Medications Generic Name Dose Route Start Last Admin Trade Name Freq PRN Reason Stop Dose Admin Diphenhydramine HCl 25 mg 07/19/24 01:15 07/19/24 01:25 Diphenhydramine 50mg/Ml Vial IV 07/19/24 01:16 25 mg ONCE ONE Administration Epinephrine HCl 0.3 mg 07/19/24 01:15 07/19/24 01:25 Epinephrine 1 Mg/Ml Ampul IM 07/19/24 01:16 0.3 mg ONCE ONE Administration Famotidine 20 mg 07/19/24 01:15 07/19/24 01:25 Famotidine 20mg/2ml Vial IV 07/19/24 01:16 20 mg ONCE ONE Administration Methylprednisolone Sodium Succinate 125 mg 07/19/24 01:15 07/19/24 01:24 Methylprednisolone Sod Succ 125mg Vial IV 07/19/24 01:16 125 mg ONCE ONE Administration ORDERS Category Date Time Status Chest XR -- portable [XR chest portable] Stat Exams 07/19/24 01:15 Completed CBC w/Auto Diff [Complete Blood Count Auto Diff] Stat Lab 07/19/24 01:00 Completed CMP [Comprehensive Metabolic Panel] Stat Lab 07/19/24 01:00 Completed INR [Prothrombin Time INR] Stat Lab 07/19/24 01:00 Completed Lipase Stat Lab 07/19/24 01:00 Completed Medical Decision Narrative: 29-year-old male with history of recurrent allergic reactions presents for complaint lower lip swelling, vomiting, generalized itching that awoke him from sleep. History was obtained via interactive discussion with patient. On arrival, patient is [afebrile, hemodynamically stable, satting appropriately, alert, oriented x4, GCS 15], moving all extremities spontaneously. Full physical exam performed and significant for mild urticarial rash, no significant abdominal tenderness, clear lungs bilaterally. Differential includes but is not limited to anaphylaxis, allergic reaction, angioedema, idiopathic urticaria. Patient is generally well-appearing with normal vital signs. Technically, given multisystem involvement, I think patient does meet criteria for anaphylaxis. Patient was given IM epinephrine, 125 Solu-Medrol, Benadryl and Pepcid for symptomatic management and correction of underlying abnormalities. Workup initiated including CBC CMP lipase PT/INR chest x-ray. On re-evaluation, patient reports symptomatic improvement. Laboratory workup independently interpreted by me and significant for no significant electrolyte derangement, normal hemoglobin, negative lipase. Imaging independently interpreted by me and significant for clear lungs bilaterally without focal opacity. See radiology read for full review of final results. Continued observation was considered, but deemed unnecessary due to symptomatic improvement.. Given patient history, exam and workup, patient's presentation most likely represents possible anaphylaxis. Patient was discharged in stable condition with return precautions and instructions regarding symptomatic care. He was previously discharged with EpiPen. Procedures Risk/Benefits of Procedure(s) Were Explained: Yes Critical Care Critical Care Time Critical Care Time: Yes Attestation: On 07/19/24, the high probability of a clinically significant, sudden or life threatening deterioration of the following system(s) required my full and direct attention, intervention and personal management. The time I documented below is in addition to time spent performing reported procedures but includes the following listed in this critical care notation. Total Time Total Critical Care Time: 35
[2024-07-19 01:01] VITALS: BP 116/87; PULSE 103; RESP 20; TEMP 36.8; O2SAT 98; BMI 20.7
--- NOTE | 2024-07-19 01:15 | XR_ITS ---
PROCEDURE INFORMATION: Exam: XR Chest Exam date and time: 07/19/2024 1:23 AM Age: 29 years old Clinical indication: Pain; Other: Cp; Additional info: Chest pain TECHNIQUE: Imaging protocol: Radiologic exam of the chest. Views: 1 view. COMPARISON: CR XR CHEST PORTABLE 04/12/2024 12:23 AM FINDINGS: Lungs: Unremarkable. No consolidation. Pleural spaces: Unremarkable. No pleural effusion. No pneumothorax. Heart/Mediastinum: Unremarkable. No cardiomegaly. Bones/joints: Unremarkable. IMPRESSION: No acute findings.
[2024-07-19] MEDS: METHYLPREDNISOLONE SOD SUCC 125MG VIAL 125 MG IV (01:24)
[2024-07-19] MEDS: EPINEPHrine 1 MG/ML AMPUL 0.3 MG IM (01:25)
[2024-07-19] MEDS: diphenhydrAMINE 50MG/ML VIAL 25 MG IV (01:25)
[2024-07-19] MEDS: FAMOTIDINE 20MG/2ML VIAL 20 MG IV (01:25)
[2024-07-19 01:30] LABS: Basophils % 0.4 % (0.1-2.0); Eosinophils # 0.2 Kmm3 (0.0-0.4); Eosinophils % 1.3 % (0.1-12.0); Hemoglobin 15.3 g/dL (14.1-18.0); Immature Granulocytes # 0.03 10^3uL; Immature Granulocytes % 0.3 %; Lymphocytes # 4.6 K/mm3 (0.7-4.5); Lymphocytes % 40.2 % (10-50); Mean Corpuscular HGB Conc 35.6 g/dL (31.8-35.4); Mean Corpuscular Hemoglobin 32.6 pg (27.0-31.2); Mean Corpuscular Volume 91.5 fl (80-94); Mean Platelet Volume 12.2 fl (7.4-10.4); Monocytes % 9.1 % (1.7-9.3); Neutrophils # 5.5 K/mm3 (1.8-7.8); Neutrophils % 48.7 % (37.0-80.0); Nucleated Red Blood Cells # 0 10^3/uL; Nucleated Red Blood Cells % 0 %; Platelet Count 275 K/mm3 (142-424); Red Cell Distribution Width 11.2 % (11.5-17.5); Red Cell Distribution Width-SD 38.1 fL; White Blood Count 11.4 K/mm3 (4.8-10.8)
[2024-07-19 01:36] LABS: INR 0.95 (0.9-1.1); Prothrombin Time 10.7 seconds (10.1-12.5)
[2024-07-19 01:39] LABS: Alanine Aminotransferase 48 U/L (12-78); Alkaline Phosphatase 58 U/L (38-126); Anion Gap 11.7 mEq/L (5-15); Aspartate Amino Transferase 44 U/L (17-59); Bilirubin,Total 0.8 mg/dl (0.2-1.3); Blood Urea Nitrogen 6 mg/dl (9-20); Calcium 9.6 mg/dl (8.4-10.2); Carbon Dioxide 25 mmol/L (22.0-30.0); Chloride 106 mmol/L (98-107); Creatinine Clearance Estimated 152 mL/min (50-200); Estimated Glomerular Filt Rate 135 ml/min (>60); GFR (African American) 164 ML/MIN (>60); Globulin 2.5 g/dL (1.3-3.2); Glucose 104 mg/dl (74-100); Lipase 131 U/L (23-300); Potassium 3.7 mmoL/L (3.5-5.1); Sodium 139 mmol/L (136-145); Total Protein,Serum 7.5 g/dl (6.3-8.2)
[2024-07-19 01:48] VITALS: PULSE 85; O2SAT 96
[2024-07-19 02:18] VITALS: BP 112/66; PULSE 98; RESP 14; TEMP 36.6; O2SAT 97
== END 2024-07-19 02:19 | disposition home or self-care (01) ==
PROVIDERS: Emergency Provider Emergency Medicine
DX: T78.2XXA Anaphylactic shock, unspecified, initial encounter (principal); R22.0 Localized swelling, mass and lump, head; R11.10 Vomiting, unspecified; L29.9 Pruritus, unspecified
CPT/HCPCS: 71045; 80053; 83690; 85025; 85610; 96372; 96374; 96375; 99291; J0171; J1200; J2919